=== PATIENT | male | born 1960 | race Two or more races ===

== ENCOUNTER 2016-06-30 16:15 | Inpatient (IN) | payer OTHER ==
[2016-06-30 16:35] VITALS: BMI 20.7
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
[2016-06-30] MEDS ORDERED: MAG HYDROX/AL HYDROX/SIMETH 30 ML UNIT-DOSE CUP PO PRN (19:21)
[2016-06-30] MEDS ORDERED: ACETAMINOPHEN 325 MG TABLET (FP) PO PRN (19:21)
[2016-06-30] MEDS ORDERED: MAGNESIUM HYDROX 2400MG/30ML ORAL SUSPENSION 30 ML CUP PO PRN (19:21)
[2016-06-30] MEDS ORDERED: hydrOXYzine PAMOATE 25 MG CAPSULE (FP) PO PRN (19:21)
[2016-06-30] MEDS ORDERED: diphenhydrAMINE HCL 50 MG CAPSULE PO PRN (19:21)
[2016-06-30] MEDS ORDERED: IBUPROFEN 400 MG TABLET (FP) PO PRN (19:21)
[2016-06-30] MEDS ORDERED: METHADONE HCL 10 MG TABLET (FOR DETOX USE ONLY) PO ONE ×2 (19:21→23:00)
[2016-06-30] MEDS ORDERED: P-EPHED 60MG/TRIPROLIDI 2.5MG TABLET PO PRN (19:21)
[2016-06-30] MEDS ORDERED: MAGNESIUM CITRATE 300 ML BOTTLE PO PRN (19:21)
[2016-06-30] MEDS ORDERED: MENTHOL/PHENOL 1 EACH UD MM PRN (19:21)
[2016-06-30] MEDS ORDERED: guaiFENesin/D-METHORPHAN HB 10 ML UNIT-DOSE CUPS PO PRN (19:21)
[2016-06-30] MEDS ORDERED: LOPERAMIDE HCL 2 MG CAPSULE PO PRN (19:21)
[2016-06-30] MEDS ORDERED: NICOTINE POLACRILEX 2 MG GUM BC PRN (19:21)
[2016-06-30] MEDS: NICOTINE 21 MG/24 HOURS TOPICAL PATCH TD SCH (20:49)
[2016-06-30] MEDS: cloNIDine HCL 0.1 MG TABLET PO SCH (22:33)
[2016-06-30] MEDS: THIAMINE HCL 100 MG TABLET (FP) PO SCH (22:33)
[2016-07-01] MEDS: diazePAM 5 MG TABLET PO PRN (05:22)
[2016-07-01] MEDS: CYCLOBENZAPRINE HCL 10 MG TABLET (FP) PO PRN (05:22)
[2016-07-01] MEDS ORDERED: METHADONE HCL 10 MG TABLET (FOR DETOX USE ONLY) PO ONE (10:00)
[2016-07-01] MEDS ORDERED: PRENATAL VITAMINS W/ FOLIC ACID TABLET (FP) PO SCH (10:00)
[2016-07-01] MEDS: cloNIDine HCL 0.1 MG TABLET PO SCH ×2 (10:56→22:22)
[2016-07-01] MEDS: NICOTINE 21 MG/24 HOURS TOPICAL PATCH TD SCH (10:57)
--- NOTE | 2016-07-01 13:31 | PN ---
[facility]HS COWS - Scale Resting Pulse: 0= [place] 80 or Below Sweatin=Flushed/Facial Moisture Restless Observation: 1= Difficult to Sit Still Pupil Size: 0= Normal to Room Light Bone or Joint Aches: 2= Severe Diffuse Aches Runny Nose/ Eye Tearin= Runny Nose/Eyes GI Upset > 30mins: 2= Nausea/Diarrhea Tremor Observation of Outstretched Hands: 2= Slight Tremor Visible Yawning Observation: 1= 1-2x During Session Anxiety or Irritability: 2=Irritable/Anxious Goose Flesh Skin: 0=Smooth Skin COWS Score: 14 BHS Progress Note (SOAP) Subjective: Anxiety,tremors,sweating,interrupted sleep,restless. Objective: 07/01/16 13:29 Vital Signs - 8 hr 07/01/16 07/01/16 06:29 11:54 Temperature 98.1 F 97 F L Pulse Rate 60 69 Respiratory 16 18 Rate Blood Pressure 117/65 120/67 Assessment: 07/01/16 13:30 Withdrawal sx. Plan: Continue detox
[2016-07-01 16:52] LABS: URINE APPEARANCE CLEAR; URINE BILIRUBIN NEGATIVE (NEGATIVE); URINE BLOOD NEGATIVE (NEGATIVE); URINE COLOR STRAW; URINE GLUCOSE (UA) NEGATIVE (NEGATIVE); URINE KETONE NEGATIVE (NEGATIVE); URINE LEUK ESTERASE NEGATIVE (NEGATIVE); URINE NITRITE NEGATIVE (NEGATIVE); URINE PROTEIN NEGATIVE (NEGATIVE); URINE UROBILINOGEN NEGATIVE E.U./dl (0.2-1.0)
[2016-07-01 22:16] VITALS: BP 131/72; PULSE 62; TEMP 97.4
[2016-07-01] MEDS: THIAMINE HCL 100 MG TABLET (FP) PO SCH (22:22)
--- NOTE | 2016-07-02 00:47 | EKG ---
Test Reason : Blood Pressure : / mmHG Vent. Rate : 056 BPM Atrial Rate : 056 BPM P-R Int : 212 ms QRS Dur : 092 ms QT Int : 406 ms P-R-T Axes : 075 094 075 degrees QTc Int : 391 ms SINUS BRADYCARDIA WITH 1ST DEGREE A-V BLOCK WITH PREMATURE SUPRAVENTRICULAR COMPLEXES BORDERLINE ECG NO PREVIOUS ECGS AVAILABLE Confirmed by KANE AYALA MD ([id number]) on 07/02/2016 12:47:23 AM Referred By: Confirmed By:KANE AYALA MD
[2016-07-02] MEDS: diazePAM 5 MG TABLET PO PRN (05:17)
[2016-07-02] MEDS: CYCLOBENZAPRINE HCL 10 MG TABLET (FP) PO PRN (05:38)
--- NOTE | 2016-07-02 06:06 | PN ---
[facility] Progress Note Note: called by nurse,stated patient is threatening her ,securities called to the unit ,nursing supervisor tumbling and rolling notified, administrative discharge,escorted off unit by securities
--- NOTE | 2016-07-02 06:08 | DS ---
[facility] Detox Discharge Summary Admission Date: 06/30/16 Discharge Date: 07/02/16 - History Present History: Cocaine Dependence, Opioid Dependence Additional Comments: patient is threatening nursing staff,securities called to unit,administrative discharge,escorted off unit by securities,nursing preload supervisor informed by nurse Pertinent Past History: hepatitis c - Physical Exam Results Vital Signs: Vital Signs Temperature 97.4 F L 07/01/16 22:15 Pulse Rate 62 07/01/16 22:15 Respiratory Rate 18 07/02/16 03:37 Blood Pressure 131/72 07/01/16 22:15 O2 Sat by Pulse Oximetry (%) Pertinent Admission Physical Exam Findings: withdrawal symptom - Medication Discharge Medications: Ambulatory Orders Olanzapine [Zyprexa] 20 mg PO DAILY 01/02/13 - Diagnosis (1) Cocaine dependence, uncomplicated Current Visit: No Status: Acute (2) Hepatitis C Current Visit: No Status: Chronic Qualifiers: Viral hepatitis chronicity: chronic (3) Opioid dependence with withdrawal Current Visit: Yes Status: Acute (4) Weight loss Current Visit: Yes Status: Acute (5) Nicotine dependence Current Visit: Yes Status: Acute - AMA Did Patient Leave Against Medical Advice: No
[2016-07-02] MEDS ORDERED: METHADONE HCL 5 MG TABLET (FOR DETOX USE ONLY) PO ONE (10:00)
--- NOTE | 2016-07-02 14:10 | DS ---
[facility] Detox Discharge Summary Admission Date: 06/30/16 Discharge Date: 07/02/16 - History Present History: Cocaine Dependence, Opioid Dependence Additional Comments: ADVISED PATIENT TO FOLLOW-UP WITH SITE MANAGER AFTER DISCHARGE FROM DETOX FOR GENERAL MEDICAL ASSESSMENT. Pertinent Past History: Hep C. - Physical Exam Results Vital Signs: Vital Signs Temperature 97.4 F L 07/01/16 22:15 Pulse Rate 62 07/01/16 22:15 Respiratory Rate 18 07/02/16 03:37 Blood Pressure 131/72 07/01/16 22:15 O2 Sat by Pulse Oximetry (%) Pertinent Admission Physical Exam Findings: WITHDRAWAL SYMPTOMS. Laboratory Last Values Urine Color Straw 07/01/16 16:28 Urine Appearance Clear 07/01/16 16:28 Urine pH 7.0 (5.0-8.0) D 07/01/16 16:28 Ur Specific [place] 1.009 (1.001-1.035) 07/01/16 16:28 Urine Protein Negative (NEGATIVE) 07/01/16 16:28 Urine Glucose (UA) Negative (NEGATIVE) 07/01/16 16:28 Urine Ketones Negative (NEGATIVE) 07/01/16 16:28 Urine Blood Negative (NEGATIVE) 07/01/16 16:28 Urine Nitrite Negative (NEGATIVE) 07/01/16 16:28 Urine Bilirubin Negative (NEGATIVE) 07/01/16 16:28 Urine Urobilinogen Negative E.U./dl (0.2-1.0) 07/01/16 16:28 Ur Leukocyte Esterase Negative (NEGATIVE) 07/01/16 16:28 LABS NOTED. - Treatment Hospital Course: Detoxed Safely - Diagnosis (1) Nicotine dependence Status: Chronic Qualifiers: Nicotine product type: cigarettes Substance use status: uncomplicated Qualified Code(s): F17.210 - Nicotine dependence, cigarettes, uncomplicated (2) Opioid dependence with withdrawal Status: Acute (3) Cocaine dependence, uncomplicated Status: Acute (4) Hepatitis C Status: Chronic Qualifiers: Viral hepatitis chronicity: chronic Hepatic coma status: without hepatic coma Qualified Code(s): B18.2 - Chronic viral hepatitis C - AMA Did Patient Leave Against Medical Advice: No (PATIENT ADMINISTRATIVELY DISCHARGED FROM UNIT.)
[2016-07-03] MEDS ORDERED: METHADONE HCL 5 MG TABLET (FOR DETOX USE ONLY) PO ONE (10:00)
[2016-07-04] MEDS ORDERED: METHADONE HCL 10 MG TABLET (FOR DETOX USE ONLY) PO ONE (10:00)
[2016-07-05] MEDS ORDERED: METHADONE HCL 5 MG TABLET (FOR DETOX USE ONLY) PO ONE (06:00)
== END 2016-07-02 06:00 | disposition home or self-care (01) | DRG 773 ==
LOC: YASAS 16:15 → Y3N 17:12
PROVIDERS: ADMIT Internal Medicine; ATTEND Internal Medicine
PROC: HZ2ZZZZ Detoxification Services for Substance Abuse Treatment (ICD-10-PCS; principal; 2016-06-30)
DX: F11.23 Opioid dependence with withdrawal (principal); F14.20 Cocaine dependence, uncomplicated; F17.210 Nicotine dependence, cigarettes, uncomplicated; B18.2 Chronic viral hepatitis C; Z87.898 Personal history of other specified conditions; Z91.5 Personal history of self-harm; F91.8 Other conduct disorders
CPT/HCPCS: 81003; 93005; 93010

== ENCOUNTER 2018-03-10 11:40 | Inpatient (IN) | payer OTHER ==
[2018-03-10 12:37] VITALS: BMI 22.5
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
[2018-03-10] MEDS ORDERED: LOPERAMIDE HCL 2 MG CAPSULE PO PRN (15:17)
[2018-03-10] MEDS ORDERED: P-EPHED 60MG/TRIPROLIDI 2.5MG TABLET PO PRN (15:17)
[2018-03-10] MEDS ORDERED: MAG HYDROX/AL HYDROX/SIMETH 30 ML UNIT-DOSE CUP PO PRN (15:17)
[2018-03-10] MEDS ORDERED: guaiFENesin/D-METHORPHAN HB 10 ML UNIT-DOSE CUPS PO PRN (15:17)
[2018-03-10] MEDS ORDERED: NICOTINE POLACRILEX 2 MG GUM BC PRN (15:17)
[2018-03-10] MEDS ORDERED: MENTHOL/PHENOL 1 EACH UD MM PRN (15:17)
[2018-03-10] MEDS ORDERED: ACETAMINOPHEN 325 MG TABLET (FP) PO PRN (15:17)
[2018-03-10] MEDS ORDERED: IBUPROFEN 400 MG TABLET (FP) PO PRN (15:17)
[2018-03-10] MEDS ORDERED: MAGNESIUM CITRATE 300 ML BOTTLE PO PRN (15:17)
[2018-03-10] MEDS ORDERED: MAGNESIUM HYDROX 2400MG/30ML ORAL SUSPENSION 30 ML CUP PO PRN (15:17)
[2018-03-10] MEDS ORDERED: METHADONE HCL 10 MG TABLET (FOR DETOX USE ONLY) PO ONE ×2 (15:55→23:00)
[2018-03-10 20:20] LABS: URINE APPEARANCE CLEAR; URINE BILIRUBIN NEGATIVE (<2.0 mg/dL); URINE COLOR YELLOW; URINE GLUCOSE (UA) NEGATIVE (NEGATIVE); URINE KETONE NEGATIVE (NEGATIVE); URINE LEUK ESTERASE NEGATIVE (NEGATIVE); URINE NITRITE NEGATIVE (NEGATIVE); URINE PROTEIN NEGATIVE (NEGATIVE); URINE UROBILINOGEN NEGATIVE mg/dL (0.2-1.0)
[2018-03-10] MEDS ORDERED: MELATONIN 5 MG TABLETS PO PRN (22:00)
[2018-03-10] MEDS: diazePAM 5 MG TABLET PO PRN (22:09)
[2018-03-10] MEDS: THIAMINE HCL 100 MG TABLET (FP) PO SCH (22:10)
[2018-03-11] MEDS ORDERED: PRENATAL VITAMINS W/ FOLIC ACID TABLET (FP) PO SCH (10:00)
[2018-03-11] MEDS ORDERED: METHADONE HCL 10 MG TABLET (FOR DETOX USE ONLY) PO ONE (10:00)
[2018-03-11] MEDS ORDERED: NICOTINE 21 MG/24 HOURS TOPICAL PATCH TD SCH (10:00)
[2018-03-11 10:12] LABS: HEMATOCRIT 38.5 % (35.4-49); HEMOGLOBIN 12.4 GM/dL (11.7-16.9); MCH 29.4 pg (25.7-33.7); MCHC 32.2 g/dl (32.0-35.9); MEAN CELL VOLUME 91.3 fl (80-96); MEAN PLT VOLUME 9.1 fl (7.5-11.1); PLATELET COUNT 222 K/MM3 (134-434); RBC 4.21 M/mm3 (4.00-5.60); WHITE BLOOD COUNT 6.1 K/mm3 (4.0-10.0)
[2018-03-11] MEDS: diazePAM 5 MG TABLET PO PRN ×3 (10:40→22:01)
[2018-03-11 12:24] LABS: ALBUMIN 3.6 g/dl (3.4-5.0); ALK PHOS 99 U/L (45-117); ANION GAP 9 MMOL/L (8-16); BILIRUBIN,TOTAL 0.4 mg/dL (0.2-1); BLOOD UREA NITROGEN 13 mg/dL (7-18); CALCIUM 8.6 mg/dL (8.5-10.1); CHLORIDE 106 mmol/L (98-107); CO2 26 mmol/L (21-32); CREATININE 1.2 mg/dL (0.55-1.3); GLUCOSE,RANDOM 111 mg/dL (74-106); POTASSIUM 4.4 mmol/L (3.5-5.1); SGOT/AST 23 U/L (15-37); SGPT/ALT 23 U/L (13-61); SODIUM 142 mmol/L (136-145); TOT PROT 7.3 g/dl (6.4-8.2)
--- NOTE | 2018-03-11 12:25 | PN ---
[facility] COWS - Scale Resting Pulse: 0= [place] 80 or Below Sweatin= Chills/Flushing Restless Observation: 3= Extraneous Movement Pupil Size: 0= Normal to Room Light Bone or Joint Aches: 2= Severe Diffuse Aches Runny Nose/ Eye Tearin= Runny Nose/Eyes GI Upset > 30mins: 3= Vomiting/Diarrhea Tremor Observation of Outstretched Hands: 2= Slight Tremor Visible Yawning Observation: 1= 1-2x During Session Anxiety or Irritability: 2=Irritable/Anxious Goose Flesh Skin: 0=Smooth Skin COWS Score: 16 B[facility] Progress Note (SOAP) Subjective: Agitation, vomiting, sweating, tremor, chills. Patient stated that he plans to leave [facility] because he uses a lot of methadone outside and the methadone here is not enough. Collision Repairer educated patient on importance of completing detox and encouraged him to stay and to also consider rehab. Objective: 03/11/18 12:25 Last Vital Signs Temp Pulse Resp BP Pulse Ox 98.2 F 63 16 122/70 03/11/18 09:06 03/11/18 09:06 03/11/18 09:06 03/11/18 09:06 Laboratory Tests 03/10/18 03/11/18 03/11/18 19:30 05:45 05:45 WBC 6.1 RBC 4.21 Hgb 12.4 Hct 38.5 MCV 91.3 MCH 29.4 MCHC 32.2 RDW 13.0 Plt Count 222 MPV 9.1 Sodium 142 Potassium 4.4 Chloride 106 Carbon Dioxide 26 Anion Gap 9 BUN 13 Creatinine 1.2 Creat Clearance w eGFR > 60 Random Glucose 111 H Calcium 8.6 Total Bilirubin 0.4 AST 23 ALT 23 Alkaline Phosphatase 99 Total Protein 7.3 Albumin 3.6 Urine Color Yellow Urine Appearance Clear Urine pH 6.0 Ur Specific Clifford 1.020 Urine Protein Negative Urine Glucose (UA) Negative Urine Ketones Negative Urine Blood Negative Urine Nitrite Negative Urine Bilirubin Negative Urine Urobilinogen Negative Ur Leukocyte Esterase Negative Labs reviewed Assessment: 03/11/18 12:26 Withdrawal symptoms Plan: Continue detox Encouraged PO water intake
--- NOTE | 2018-03-11 16:07 | EKG ---
Test Reason : Blood Pressure : / mmHG Vent. Rate : 058 BPM Atrial Rate : 058 BPM P-R Int : 206 ms QRS Dur : 092 ms QT Int : 390 ms P-R-T Axes : 070 094 066 degrees QTc Int : 382 ms SINUS BRADYCARDIA RIGHTWARD AXIS BORDERLINE ECG WHEN COMPARED WITH ECG OF 30-JUN-2016 20:24, PREMATURE SUPRAVENTRICULAR COMPLEXES ARE NO LONGER PRESENT Confirmed by MD SCOTT, DAVE ([id number]) on 03/11/2018 4:07:25 PM Referred By: Confirmed By:DAVE CHAVEZ MD
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
[2018-03-11] MEDS: THIAMINE HCL 100 MG TABLET (FP) PO SCH (22:01)
[2018-03-12] MEDS: diazePAM 5 MG TABLET PO PRN (04:28)
[2018-03-12 06:03] VITALS: BP 133/72; PULSE 55; TEMP 97.1
[2018-03-12] MEDS ORDERED: METHADONE HCL 5 MG TABLET (FOR DETOX USE ONLY) PO ONE (10:00)
--- NOTE | 2018-03-12 11:57 | DS ---
[facility] Detox Discharge Summary Admission Date: 03/10/18 Discharge Date: 03/12/18 - History Present History: Cocaine Dependence, Opioid Dependence Additional Comments: Patient decided to leave AMA despite encouragement from staff to complete detox. As per patient, he is leaving to enroll in a methadone program. Patient instructed to call 911 if any withdrawal symptoms and to see his PCP within 3 days. Patient is A/A/Ox 3, ambulatory and in nad. Patient told this real estate underwriter since yesterday that he used a lot of methadone and the methadone here is too small and that he was going to leave AMA. Pertinent Past History: Withdrawal symptoms Laboratory Tests 03/10/18 03/11/18 03/11/18 19:30 05:45 05:45 WBC 6.1 RBC 4.21 Hgb 12.4 Hct 38.5 MCV 91.3 MCH 29.4 MCHC 32.2 RDW 13.0 Plt Count 222 MPV 9.1 Sodium 142 Potassium 4.4 Chloride 106 Carbon Dioxide 26 Anion Gap 9 BUN 13 Creatinine 1.2 Creat Clearance w eGFR > 60 Random Glucose 111 H Calcium 8.6 Total Bilirubin 0.4 AST 23 ALT 23 Alkaline Phosphatase 99 Total Protein 7.3 Albumin 3.6 Urine Color Yellow Urine Appearance Clear Urine pH 6.0 Ur Specific [place] 1.020 Urine Protein Negative Urine Glucose (UA) Negative Urine Ketones Negative Urine Blood Negative Urine Nitrite Negative Urine Bilirubin Negative Urine Urobilinogen Negative Ur Leukocyte Esterase Negative RPR Titer 03/11/18 05:45 WBC RBC Hgb Hct MCV MCH MCHC RDW Plt Count MPV Sodium Potassium Chloride Carbon Dioxide Anion Gap BUN Creatinine Creat Clearance w eGFR Random Glucose Calcium Total Bilirubin AST ALT Alkaline Phosphatase Total Protein Albumin Urine Color Urine Appearance Urine pH Ur Specific [place] Urine Protein Urine Glucose (UA) Urine Ketones Urine Blood Urine Nitrite Urine Bilirubin Urine Urobilinogen Ur Leukocyte Esterase RPR Titer Nonreactive Labs reviewed - Physical Exam Results Vital Signs: Vital Signs Temperature 97.1 F L 03/12/18 06:03 Pulse Rate 55 L 03/12/18 06:03 Respiratory Rate 18 03/12/18 06:30 Blood Pressure 133/72 03/12/18 06:03 O2 Sat by Pulse Oximetry (%) - Medication Discharge Medications: Ambulatory Orders NK [No Known Home Medication] 03/10/18 - Diagnosis (1) Cocaine dependence, uncomplicated Status: Chronic (2) Opioid dependence with withdrawal Status: Acute (3) Hepatitis C Status: Chronic Qualifiers: Viral hepatitis chronicity: chronic Hepatic coma status: without hepatic coma Qualified Code(s): B18.2 - Chronic viral hepatitis C (4) Nicotine dependence Status: Chronic Qualifiers: Nicotine product type: cigarettes Substance use status: uncomplicated Qualified Code(s): F17.210 - Nicotine dependence, cigarettes, uncomplicated - AMA Did Patient Leave Against Medical Advice: Yes (Instructed to call 911 if withdrawal symptoms or feeling sick)
[2018-03-13] MEDS ORDERED: METHADONE HCL 5 MG TABLET (FOR DETOX USE ONLY) PO ONE (10:00)
[2018-03-14] MEDS ORDERED: METHADONE HCL 10 MG TABLET (FOR DETOX USE ONLY) PO ONE (10:00)
[2018-03-15] MEDS ORDERED: METHADONE HCL 5 MG TABLET (FOR DETOX USE ONLY) PO ONE (06:00)
== END 2018-03-12 08:40 | disposition left against medical advice (07) | DRG 770 ==
LOC: YASAS 11:40 → Y3N 15:18
PROC: HZ2ZZZZ Detoxification Services for Substance Abuse Treatment (ICD-10-PCS; principal; 2018-03-10)
DX: F11.23 Opioid dependence with withdrawal (principal); F14.20 Cocaine dependence, uncomplicated; F12.20 Cannabis dependence, uncomplicated; F17.210 Nicotine dependence, cigarettes, uncomplicated; F19.24 Other psychoactive substance dependence with psychoactive substance-induced mood disorder; B18.2 Chronic viral hepatitis C; G47.00 Insomnia, unspecified; R01.1 Cardiac murmur, unspecified; Z87.898 Personal history of other specified conditions; Z91.5 Personal history of self-harm
CPT/HCPCS: 36415; 80053; 81003; 85027; 86593; 93005; 93010